=== PATIENT | female | born 1950 | race Caucasian/White ===

== ENCOUNTER 2017-07-01 10:36 | Day surgery (SDC) | payer MEDICARE ==
[2017-06-28 09:53] VITALS: BP 142/84
[~2017-07-01] VITALS: Ht 160 cm; Wt 55.0 kg
[~2017-07-01 10:36] MED LIST: No meds per pt.
[2017-07-01] MEDS ORDERED: LACTATED RINGERS 1,000 ML IV SCH (11:06)
[2017-07-01] MEDS ORDERED: LIDOCAINE 1%, 2ML ONE (11:09)
[2017-07-01] MEDS ORDERED: LIDOCAINE 1%, 2ML SQ PRN (11:30)
[2017-07-01] MEDS ORDERED: PROPOFOL 10 MG/ML, 20ML ONE (12:46)
== END 2017-07-01 14:55 | disposition home or self-care (01) ==
LOC: OUT 10:36
DX: Z09 Encounter for follow-up examination after completed treatment for conditions other than malignant neoplasm (principal); D12.0 Benign neoplasm of cecum; D12.2 Benign neoplasm of ascending colon; Z87.19 Personal history of other diseases of the digestive system
CPT/HCPCS: 45385; 88305; 93005; J2704; J3490; J7120